=== PATIENT | female | born 1970 | race African-American/Black ===

== ENCOUNTER 2017-04-21 07:04 | Emergency (ER) | payer MEDICAID ==
[~2017-04-21] VITALS: Ht 167.6 cm; Wt 55.0 kg
[~2017-04-21 07:04] MED LIST: TRIAMTERENE; [UNRECOGNIZED DRUG - CODE]
[2017-04-21] MEDS ORDERED: ACETAMINOPHEN WITH CODEINE 300/30MG TABLET PO ONE ×2 (11:00→14:00)
[2017-04-21 11:38] LABS: BASOPHILS % 1.1 % (0.0-2.0); CARBON DIOXIDE 29 mEq/L (21-32); CHLORIDE 99 mEq/L (98-107); EOSINOPHILS % 4.9 % (0.0-5.0); HEMATOCRIT. 45.6 % (36.0-48.0); HEMOGLOBIN. 15.1 g/dL (12.0-16.0); LYMPHOCYTES % 25.3 % (20.0-50.0); MEAN CORPUSCULAR HEMOGLOBIN 26.6 pg (28.0-32.0); MEAN CORPUSCULAR VOLUME 80.2 fL (81.0-99.0); MEAN PLATELET VOLUME 9.2 fl (7.4-10.4); MONOCYTES % 7.9 % (2.0-8.0); NEUTROPHILS % 60.8 % (40.0-76.0); PLATELET 261 x1000/uL (130-400); RED BLOOD CELL COUNT 5.69 mill/uL (4.2-5.4); RED CELL DISTRIBUTION WIDTH 14.3 % (11.6-14.6)
[2017-04-21 11:42] LABS: CLARITY URINE CLEAR (CLEAR); COLOR URINE YELLOW (YELLOW); GLUCOSE URINE NEGATIVE (NEGATIVE); KETONES URINE NEGATIVE (NEGATIVE); LEUKOCYTE ESTERASE URINE NEGATIVE (NEGATIVE); NITRITE URINE NEGATIVE (NEGATIVE); OCCULT BLOOD URINE NEGATIVE (NEGATIVE); PH URINE 7.5 (4.5-8.0); PROTEIN URINE NEGATIVE (NEGATIVE); UROBILINOGEN URINE 0.2 E.U./dL (0.2-1.0)
[2017-04-21 11:43] LABS: C REACTIVE PROTEIN QUANT 1.4 mg/L (0.0-3.0)
[2017-04-21 14:03] VITALS: BP 142/79
== END 2017-04-21 14:31 | disposition home or self-care (01) ==
LOC: ER 07:04
DX: M77.8 Other enthesopathies, not elsewhere classified (principal); I10 Essential (primary) hypertension
CPT/HCPCS: 29130; 36415; 73130; 80053; 81003; 81025; 85025; 85651; 86140; 87040; 99285; Z7610

== ENCOUNTER 2022-01-09 07:07 | Emergency (ER) | payer MEDICAID ==
[~2022-01-09] VITALS: Ht 172.7 cm; Wt 63.5 kg
[2022-01-09] MEDS ORDERED: ACETAMINOPHEN 325MG TABLET PO STA (07:31)
[2022-01-09] MEDS ORDERED: TOPUD PO (08:05)
[2022-01-09 08:53] VITALS: BP 232/145
== END 2022-01-09 08:54 | disposition home or self-care (01) ==
LOC: ER 07:31
DX: S20.219A Contusion of unspecified front wall of thorax, initial encounter (principal); I10 Essential (primary) hypertension; V49.9XXA Car occupant (driver) (passenger) injured in unspecified traffic accident, initial encounter; Y93.89 Activity, other specified; Y92.89 Other specified places as the place of occurrence of the external cause; Y99.8 Other external cause status
CPT/HCPCS: 71045; 93005; 99283